=== PATIENT | male | born 1995 | race Caucasian/White ===

== ENCOUNTER 2017-11-30 19:50 | Emergency (ER) | payer SELFPAY ==
--- NOTE | 2017-11-30 20:41 | ERPHSYRPT ---
- History of Present Illness Time Seen by Provider: 11/30/17 20:32 Source: patient Exam Limitations: no limitations Patient Subjective Stated Complaint: pt states he was cutting an extension cord with a knife and cut through the cord and cut his left second finger between the MIP and DIP joint; minor bleeding [employer]. Triage Nursing Assessment: pt a&o x3; skin p, w, & d; ambulated to room per self ; family/friend at bedside; no other distress or discomfort noted. Physician History: The patient is a 22-year-old right-handed male with a friend complaining that he accidentally cut his left index finger with a knife as he was trying to cut an extension cord. He has good motion with his index finger. He denies numbness or tingling. His tetanus vaccination was within 5 years. Timing/Duration: today Severity: mild Location: hands (laceration to left index finger) Possible Causes: other (knife) Associated Symptoms: denies symptoms Allergies/Adverse Reactions: No Known Drug Allergies Allergy (Verified 11/30/17 20:12) Home Medications: Ranitidine HCl [Zantac] 150 mg PO DAILY 11/30/17 [History] Hx Tetanus, Diphtheria Vaccination/Date Given: Yes Hx Influenza Vaccination/Date Given: No Hx Pneumococcal Vaccination/Date Given: No Immunizations Up to Date: No - Review of Systems Constitutional: No Fever, No Chills Eyes: No Symptoms Ears, Nose, & Throat: No Symptoms Respiratory: No Cough, No Dyspnea Cardiac: No Chest Pain, No Edema, No Syncope Abdominal/Gastrointestinal: No Abdominal Pain, No Nausea, No Vomiting, No Diarrhea Genitourinary Symptoms: No Dysuria Musculoskeletal: No Back Pain, No Neck Pain Skin: Other (laceration) Neurological: No Dizziness, No Focal Weakness, No Sensory Changes Psychological: No Symptoms Endocrine: No Symptoms Hematologic/Lymphatic: No Symptoms Immunological/Allergic: No Symptoms All Other Systems: Reviewed and Negative - Past Medical History Pertinent Past Medical History: No - Past Surgical History Past Surgical History: Yes Other Surgical History: tubes in ears - Social History Smoking Status: Current every day smoker How long have you smoked: 7 years Exposure to second hand smoke: Yes Drug Use: none Patient Lives Alone: No - Nursing Vital Signs Nursing Vital Signs: Initial Vital Signs Temperature 99.1 F 11/30/17 19:59 Pulse Rate 122 H 11/30/17 19:59 Respiratory Rate 18 11/30/17 19:59 Blood Pressure 148/85 11/30/17 19:59 O2 Sat by Pulse Oximetry 99 11/30/17 19:59 Pain Scale Pain Intensity 0 - Physical Exam General Appearance: no apparent distress, alert Eye Exam: PERRL/EOMI, eyes nml inspection Ears, Nose, Throat Exam: normal ENT inspection, pharynx normal, moist mucous membranes Neck Exam: normal inspection, non-tender, supple, full range of motion Respiratory Exam: normal breath sounds, lungs clear, No respiratory distress Cardiovascular Exam: regular rate/rhythm, normal heart sounds Gastrointestinal/Abdomen Exam: soft, mass, No tenderness Rectal Exam: not done Back Exam: normal inspection, normal range of motion, No CVA tenderness, No vertebral tenderness Extremity Exam: normal inspection, normal range of motion Neurologic Exam: alert, oriented x 3, cooperative, normal mood/affect, sensation nml, No motor deficits Skin Exam: normal color, laceration (1 cm linear laceration to dorsal surface of between DIP and IP joints of left index finger.) SpO2 Interpretation: normal SpO2: 99 Oxygen Delivery: Room Air Procedures - Laceration/Wound Repair Left Hand Wound Location: Left, hand (left index finger) Wound Length (cm): 1 Wound's Depth, Shape: superficial, linear Wound Explored: clean Irrigated: No Hibiclens Prep: Yes Volume Anesthetic (ccs): 0 Wound Repaired With: sutures Suture Size/Type: 5-0, ethilon Number of Sutures: 2 Layer Closure?: No Ordered Tests: Active Orders 24 hr Category Date Time Status Wound Care STAT Care 11/30/17 20:45 Active - Progress Progress: improved Counseled pt/family regarding: diagnosis, need for follow-up - Departure Time of Disposition: 21:20 Departure Disposition: Home Clinical Impression: Laceration Condition: Stable Critical Care Time: No Additional Instructions: You had a laceration to your left index finger that was closed with 2 sutures. Have the sutures removed by her primary medical doctor in about 12 days. You were given Augmentin in the ER. Continue with Augmentin 875 twice a day for 10 days. Prescriptions: Amoxicillin/Potassium Clav [Augmentin 875-125 Tablet] 875 mg PO BID #20 tablet
[2017-11-30] MEDS ORDERED: Augmentin 875-125 Tablet PO ONE (21:23)
[2017-11-30] MEDS ORDERED: Augmentin 875-125 Tablet ONE (21:25)
[2017-11-30 21:51] VITALS: BP 141/86; PULSE 94; O2SAT 94
== END 2017-11-30 21:51 | disposition home or self-care (01) ==
LOC: ED 19:50
PROC: 0HQGXZZ Repair Left Hand Skin, External Approach (ICD-10-PCS; principal; 2017-11-30)
DX: S61.211A Laceration without foreign body of left index finger without damage to nail, initial encounter (principal); W26.0XXA Contact with knife, initial encounter
CPT/HCPCS: 12001; 99283; A9270-GY